=== PATIENT | male | born 1955 | race Caucasian/White ===

== ENCOUNTER 2023-10-18 08:44 | Inpatient (IN) ==
[2023-10-18 09:59] LABS: Appearance,Urine CLEAR (Clear); Bilirubin,Urine Negative (Negative); Color,Urine YELLOW; Culture Indicated,Urine No; Glucose,Urine (UA) Negative (Negative); Ketones,Urine 5 mg/dL (Negative); Leukocyte Esterase,Urine Negative /uL (Negative); Nitrate,Urine Negative (Negative); Protein,Urine Negative (Negative); Specific Gravity,Urine 1.009 (1.000-1.035); Urine Blood Negative (Negative); Urobilinogen,Urine Negative
[2023-10-18 09:59] LABS: Basophils # (Auto) 0.01 K/mcL (0.00-0.30); Basophils % (Auto) 0.1 % (0.0-2.0); Eosinophils # (Auto) 0.02 K/mcL (0.00-0.70); Eosinophils % (Auto) 0.3 % (0.0-7.0); Hematocrit 31.6 % (40.1-51.0); Hemoglobin 11.6 g/dL (13.7-17.5); Lymphocytes # (Auto) 0.98 K/mcL (1.50-4.80); Lymphocytes % (Auto) 14.5 % (15.5-49.0); Mean Cell Volume 95.2 fL (80.0-100.0); Mean Corpuscular HGB Conc 36.7 g/dL (31.0-36.0); Monocytes # (Auto) 0.55 K/mcL (0.10-0.90); Monocytes % (Auto) 8.1 % (1.0-12.0); Neutrophils % (Auto) 76.3 % (38.0-78.0); Platelet Count 201 K/mcL (140-440); RBC 3.32 M/mcL (4.63-6.08); Red Cell Distribution Width 11.1 % (11.5-14.5); WBC 6.8 K/mcL (4.5-11.0)
[2023-10-18 10:51] LABS: Blood Urea Nitrogen 8 mg/dL (8-23); Carbon Dioxide 17 mmol/L (22-30); Chloride 76 mmol/L (96-108); Glomerular Filtration Rate 87; Glucose 103 mg/dL (70-105)
[2023-10-18] MEDS ORDERED: 0.9 % SODIUM CHLORIDE 1,000 ML IV SCH ×2 (11:30→14:07)
[2023-10-18 11:48] LABS: POC Calcium, Ionized 1.11 (1.16-1.32); POC Creatinine 0.6 (0.6-1.2); POC Potassium 4.4 (3.3-5.1)
[2023-10-18 12:05] LABS: Alcohol, Blood < 10.0 mg/dL; Alcohol,Blood < 0.010 gm/dL (<0.010)
[2023-10-18 12:11] LABS: Osmolality,Urine 313 mOSM/kg (80-1000); Sodium, Urine Random 66 mmol/L
[2023-10-18] MEDS ORDERED: IPRATROPIUM/ALBUTEROL 3 ML AMPUL.NEB NEB PRN (14:07)
[2023-10-18] MEDS ORDERED: ACETAMINOPHEN 325 MG TABLET PO PRN (14:07)
[2023-10-18] MEDS ORDERED: SENNOSIDES 1 TABLET PO PRN (14:07)
[2023-10-18] MEDS ORDERED: ONDANSETRON 4 MG/2 ML VIAL IV PRN (14:07)
[2023-10-18] MEDS: 0.9 % SODIUM CHLORIDE 10 ML SYRINGE IV SCH ×2 (14:18→20:14)
[2023-10-18 18:46] LABS: Blood Urea Nitrogen 8 mg/dL (8-23); Calcium 8.8 mg/dL (8.6-10.4); Carbon Dioxide 18 mmol/L (22-30); Chloride 86 mmol/L (96-108); Glomerular Filtration Rate 97; Glucose 93 mg/dL (70-105)
[2023-10-18] MEDS ORDERED: DEXTROSE 5% IN WATER 1,000 ML IV SCH (19:30)
[2023-10-18] MEDS: DOCUSATE SODIUM 100 MG CAPSULE PO SCH (20:14)
[2023-10-18] MEDS: TRIAMCINOLONE CREAM 0.1% 15G 1 DOSE TUBE TOPICAL SCH (20:21)
[2023-10-18] MEDS: TAMSULOSIN 0.4 MG CAPSULE PO SCH (20:30)
[2023-10-18] MEDS ORDERED: POTASSIUM CHLORIDE 20 MEQ TABLET PO SCH (21:00)
[2023-10-19 00:53] LABS: Blood Urea Nitrogen 10 mg/dL (8-23); Calcium 8.8 mg/dL (8.6-10.4); Carbon Dioxide 21 mmol/L (22-30); Chloride 89 mmol/L (96-108); Glomerular Filtration Rate 87; Glucose 102 mg/dL (70-105)
[2023-10-19] MEDS: DEXTROSE 5% IN WATER 1,000 ML IV SCH ×2 (01:05→10:45)
[2023-10-19] MEDS: 0.9 % SODIUM CHLORIDE 10 ML SYRINGE IV SCH ×3 (05:40→23:36)
[2023-10-19 06:05] LABS: Basophils # (Auto) 0.01 K/mcL (0.00-0.30); Basophils % (Auto) 0.3 % (0.0-2.0); Eosinophils # (Auto) 0.03 K/mcL (0.00-0.70); Eosinophils % (Auto) 0.8 % (0.0-7.0); Hematocrit 29.1 % (40.1-51.0); Hemoglobin 10.6 g/dL (13.7-17.5); Lymphocytes # (Auto) 0.64 K/mcL (1.50-4.80); Lymphocytes % (Auto) 16.9 % (15.5-49.0); Mean Cell Volume 99.3 fL (80.0-100.0); Mean Corpuscular HGB Conc 36.4 g/dL (31.0-36.0); Mean Platelet Volume 8.8 fL (8.8-12.5); Monocytes # (Auto) 0.43 K/mcL (0.10-0.90); Monocytes % (Auto) 11.3 % (1.0-12.0); Neutrophils % (Auto) 70.2 % (38.0-78.0); Platelet Count 139 K/mcL (140-440); RBC 2.93 M/mcL (4.63-6.08); Red Cell Distribution Width 11.5 % (11.5-14.5); WBC 3.8 K/mcL (4.5-11.0)
[2023-10-19 06:19] LABS: Phosphorous 3.2 mg/dL (2.5-4.5)
[2023-10-19 06:22] LABS: Blood Urea Nitrogen 8 mg/dL (8-23); Calcium 8.8 mg/dL (8.6-10.4); Carbon Dioxide 20 mmol/L (22-30); Chloride 92 mmol/L (96-108); Glomerular Filtration Rate 97; Glucose 112 mg/dL (70-105)
[2023-10-19] MEDS: POTASSIUM CHLORIDE 20 MEQ TABLET PO SCH ×2 (07:38→17:56)
[2023-10-19] MEDS ORDERED: [UNRECOGNIZED DRUG - OTHER] PO SCH (09:00)
[2023-10-19] MEDS: ATORVASTATIN 10 MG TABLET PO SCH (09:03)
[2023-10-19] MEDS: ENOXAPARIN 40 MG/0.4 ML SYRINGE SQ SCH (09:03)
[2023-10-19] MEDS: TRIAMCINOLONE CREAM 0.1% 15G 1 DOSE TUBE TOPICAL SCH ×2 (09:07→20:01)
[2023-10-19] MEDS: DOCUSATE SODIUM 100 MG CAPSULE PO SCH ×2 (09:07→19:58)
[2023-10-19 12:15] LABS: Blood Urea Nitrogen 9 mg/dL (8-23); Calcium 8.9 mg/dL (8.6-10.4); Carbon Dioxide 22 mmol/L (22-30); Chloride 92 mmol/L (96-108); Glomerular Filtration Rate 92; Glucose 109 mg/dL (70-105)
[2023-10-19 18:28] LABS: Blood Urea Nitrogen 13 mg/dL (8-23); Calcium 8.8 mg/dL (8.6-10.4); Carbon Dioxide 21 mmol/L (22-30); Chloride 94 mmol/L (96-108); Glomerular Filtration Rate 92; Glucose 117 mg/dL (70-105)
[2023-10-19] MEDS: TAMSULOSIN 0.4 MG CAPSULE PO SCH (20:00)
[2023-10-20] MEDS: DEXTROSE 5% IN WATER 1,000 ML IV SCH ×2 (00:01→05:08)
[2023-10-20 00:57] LABS: Blood Urea Nitrogen 10 mg/dL (8-23); Carbon Dioxide 20 mmol/L (22-30); Chloride 95 mmol/L (96-108); Glomerular Filtration Rate 97; Glucose 120 mg/dL (70-105)
[2023-10-20 06:14] LABS: Basophils # (Auto) 0 K/mcL (0.00-0.30); Basophils % (Auto) 0 % (0.0-2.0); Eosinophils # (Auto) 0.03 K/mcL (0.00-0.70); Eosinophils % (Auto) 0.9 % (0.0-7.0); Hematocrit 32.2 % (40.1-51.0); Hemoglobin 11.1 g/dL (13.7-17.5); Lymphocytes # (Auto) 0.62 K/mcL (1.50-4.80); Mean Cell Volume 104.2 fL (80.0-100.0); Mean Corpuscular HGB Conc 34.5 g/dL (31.0-36.0); Mean Platelet Volume 9.1 fL (8.8-12.5); Monocytes # (Auto) 0.45 K/mcL (0.10-0.90); Monocytes % (Auto) 13.1 % (1.0-12.0); Neutrophils % (Auto) 67.7 % (38.0-78.0); Platelet Count 154 K/mcL (140-440); RBC 3.09 M/mcL (4.63-6.08); Red Cell Distribution Width 11.7 % (11.5-14.5); WBC 3.4 K/mcL (4.5-11.0)
[2023-10-20 06:30] LABS: Blood Urea Nitrogen 7 mg/dL (8-23); Calcium 8.9 mg/dL (8.6-10.4); Carbon Dioxide 19 mmol/L (22-30); Chloride 97 mmol/L (96-108); Glomerular Filtration Rate 103; Glucose 122 mg/dL (70-105); Phosphorous 2.6 mg/dL (2.5-4.5)
[2023-10-20] MEDS: 0.9 % SODIUM CHLORIDE 10 ML SYRINGE IV SCH ×3 (07:34→20:36)
[2023-10-20] MEDS: ATORVASTATIN 10 MG TABLET PO SCH (09:09)
[2023-10-20] MEDS: ENOXAPARIN 40 MG/0.4 ML SYRINGE SQ SCH (09:09)
[2023-10-20] MEDS: DOCUSATE SODIUM 100 MG CAPSULE PO SCH ×2 (09:12→19:57)
[2023-10-20] MEDS: POTASSIUM CHLORIDE 20 MEQ TABLET PO SCH ×2 (09:12→17:55)
[2023-10-20] MEDS: TRIAMCINOLONE CREAM 0.1% 15G 1 DOSE TUBE TOPICAL SCH ×2 (09:13→19:58)
[2023-10-20 13:41] LABS: Blood Urea Nitrogen 6 mg/dL (8-23); Carbon Dioxide 18 mmol/L (22-30); Chloride 97 mmol/L (96-108); Glomerular Filtration Rate 103; Glucose 112 mg/dL (70-105)
[2023-10-20] MEDS: SODIUM CHLORIDE 1 GM TABLET PO SCH (20:36)
[2023-10-20] MEDS: TAMSULOSIN 0.4 MG CAPSULE PO SCH (20:36)
[2023-10-21] MEDS: 0.9 % SODIUM CHLORIDE 10 ML SYRINGE IV SCH ×3 (05:33→20:36)
[2023-10-21 06:12] LABS: Basophils # (Auto) 0.03 K/mcL (0.00-0.30); Basophils % (Auto) 0.8 % (0.0-2.0); Eosinophils % (Auto) 2.7 % (0.0-7.0); Hematocrit 33.3 % (40.1-51.0); Hemoglobin 11.4 g/dL (13.7-17.5); Lymphocytes # (Auto) 0.84 K/mcL (1.50-4.80); Lymphocytes % (Auto) 22.8 % (15.5-49.0); Mean Cell Volume 104.4 fL (80.0-100.0); Mean Corpuscular HGB Conc 34.2 g/dL (31.0-36.0); Monocytes % (Auto) 13.6 % (1.0-12.0); Neutrophils % (Auto) 59.6 % (38.0-78.0); Platelet Count 174 K/mcL (140-440); RBC 3.19 M/mcL (4.63-6.08); Red Cell Distribution Width 11.7 % (11.5-14.5); WBC 3.7 K/mcL (4.5-11.0)
[2023-10-21 06:25] LABS: ALT/SGPT 61 U/L (<40); AST/SGOT 78 U/L (<40); Albumin 3.5 gm/dL (3.2-5.2); Albumin/Globulin Ratio 1.1 (1.0-2.3); Alkaline Phosphatase 94 U/L (39-117); Bilirubin,Direct 0.2 mg/dL (<0.3); Bilirubin,Total 0.5 mg/dL (0.1-1.0); Blood Urea Nitrogen 8 mg/dL (8-23); Carbon Dioxide 21 mmol/L (22-30); Chloride 98 mmol/L (96-108); Globulin 3.1 gm/dL (2.2-3.7); Glomerular Filtration Rate 103; Glucose 99 mg/dL (70-105); Lactate Dehydrogenase 135 U/L (135-225); Phosphorous 2.9 mg/dL (2.5-4.5); Triglycerides 54 mg/dL (<150)
[2023-10-21] MEDS: ATORVASTATIN 10 MG TABLET PO SCH (07:43)
[2023-10-21] MEDS: SODIUM CHLORIDE 1 GM TABLET PO SCH ×2 (07:43→20:35)
[2023-10-21] MEDS: POTASSIUM CHLORIDE 20 MEQ TABLET PO SCH ×2 (07:43→17:29)
[2023-10-21] MEDS: TRIAMCINOLONE CREAM 0.1% 15G 1 DOSE TUBE TOPICAL SCH ×2 (07:44→20:36)
[2023-10-21] MEDS: ENOXAPARIN 40 MG/0.4 ML SYRINGE SQ SCH (07:44)
[2023-10-21] MEDS: DOCUSATE SODIUM 100 MG CAPSULE PO SCH ×2 (07:44→20:36)
[2023-10-21] MEDS ORDERED: 0.9 % SODIUM CHLORIDE 1,000 ML IV ONE (08:49)
[2023-10-21] MEDS ORDERED: ADENOSINE 3 MG/ML VIAL IV ONE (08:50)
[2023-10-21] MEDS ORDERED: METOPROLOL TARTRATE 5 MG/5 ML VIAL IV ONE ×3 (08:56→09:01)
[2023-10-21] MEDS: METOPROLOL TARTRATE 5 MG/5 ML VIAL IV SCH ×2 (09:40→09:41)
[2023-10-21 11:42] LABS: POC Calcium, Ionized 1.16 (1.16-1.32); POC Creatinine 0.7 (0.6-1.2); POC Potassium 3.5 (3.3-5.1)
[2023-10-21] MEDS: TAMSULOSIN 0.4 MG CAPSULE PO SCH (20:35)
[2023-10-22] MEDS: 0.9 % SODIUM CHLORIDE 10 ML SYRINGE IV SCH ×3 (05:28→20:09)
[2023-10-22 06:19] LABS: ALT/SGPT 51 U/L (<40); AST/SGOT 60 U/L (<40); Albumin 3.5 gm/dL (3.2-5.2); Albumin/Globulin Ratio 1.2 (1.0-2.3); Alkaline Phosphatase 91 U/L (39-117); Bilirubin,Direct 0.2 mg/dL (<0.3); Bilirubin,Total 0.5 mg/dL (0.1-1.0); Blood Urea Nitrogen 9 mg/dL (8-23); Calcium 9.2 mg/dL (8.6-10.4); Carbon Dioxide 22 mmol/L (22-30); Chloride 99 mmol/L (96-108); Glomerular Filtration Rate 103; Glucose 101 mg/dL (70-105); Lactate Dehydrogenase 162 U/L (135-225); Phosphorous 3.3 mg/dL (2.5-4.5); Triglycerides 57 mg/dL (<150); Uric Acid 3.6 mg/dL (2.5-8.0)
[2023-10-22] MEDS: SODIUM CHLORIDE 1 GM TABLET PO SCH ×2 (08:06→20:08)
[2023-10-22] MEDS: ATORVASTATIN 10 MG TABLET PO SCH (08:06)
[2023-10-22] MEDS: METOPROLOL SUCCINATE 50 MG TAB.XL.24H PO SCH ×2 (08:07→20:08)
[2023-10-22] MEDS: ENOXAPARIN 40 MG/0.4 ML SYRINGE SQ SCH (08:07)
[2023-10-22] MEDS: POTASSIUM CHLORIDE 20 MEQ TABLET PO SCH ×2 (08:07→16:49)
[2023-10-22] MEDS: DOCUSATE SODIUM 100 MG CAPSULE PO SCH ×3 (08:08→20:09)
[2023-10-22] MEDS ORDERED: METOPROLOL TARTRATE 5 MG/5 ML VIAL IV ONE ×2 (08:58→09:00)
[2023-10-22] MEDS: TRIAMCINOLONE CREAM 0.1% 15G 1 DOSE TUBE TOPICAL SCH ×2 (09:27→20:09)
[2023-10-22] MEDS ORDERED: METOPROLOL TARTRATE 5 MG/5 ML VIAL IV PRN (09:55)
[2023-10-22] MEDS: TAMSULOSIN 0.4 MG CAPSULE PO SCH (20:08)
[2023-10-23] MEDS: 0.9 % SODIUM CHLORIDE 10 ML SYRINGE IV SCH (06:09)
[2023-10-23] MEDS: POTASSIUM CHLORIDE 20 MEQ TABLET PO SCH (08:35)
[2023-10-23] MEDS: DOCUSATE SODIUM 100 MG CAPSULE PO SCH (08:35)
[2023-10-23] MEDS: METOPROLOL SUCCINATE 50 MG TAB.XL.24H PO SCH (08:35)
[2023-10-23] MEDS: SODIUM CHLORIDE 1 GM TABLET PO SCH (08:35)
[2023-10-23] MEDS: ATORVASTATIN 10 MG TABLET PO SCH (08:36)
[2023-10-23] MEDS: ENOXAPARIN 40 MG/0.4 ML SYRINGE SQ SCH (08:36)
[2023-10-23] MEDS: TRIAMCINOLONE CREAM 0.1% 15G 1 DOSE TUBE TOPICAL SCH (08:37)
[2023-10-23 09:14] LABS: Blood Urea Nitrogen 14 mg/dL (8-23); Calcium 9.2 mg/dL (8.6-10.4); Carbon Dioxide 25 mmol/L (22-30); Chloride 99 mmol/L (96-108); Glomerular Filtration Rate 97; Glucose 108 mg/dL (70-105)
[2023-10-23 12:49] VITALS: TEMP 98.1
[2023-10-23 14:50] VITALS: O2SAT 96
== END 2023-10-23 14:15 | disposition home or self-care (01) | DRG 641 ==
LOC: ED 08:44 → ICU 14:02
PROVIDERS: ADMIT Internal Medicine; ATTEND Internal Medicine

== ENCOUNTER 2024-03-02 12:11 | Inpatient (IN) ==
[2024-03-02] MEDS: LACTATED RINGERS 1,000 ML IV ONE (12:30)
[2024-03-02 13:12] LABS: Alcohol, Blood < 10.1 mg/dL; Alcohol,Blood < 0.010 gm/dL (<0.010)
[2024-03-02 13:14] LABS: ALT/SGPT 48 U/L (<40); AST/SGOT 81 U/L (<40); Albumin 4.2 gm/dL (3.2-5.2); Albumin/Globulin Ratio 1.2 (1.0-2.3); Alkaline Phosphatase 127 U/L (39-117); Bilirubin,Total 1.7 mg/dL (0.1-1.0); Blood Urea Nitrogen 7 mg/dL (8-23); Calcium 9.4 mg/dL (8.6-10.4); Carbon Dioxide 19 mmol/L (22-30); Chloride 86 mmol/L (96-108); Creatine Kinase 517 U/L (24-195); Globulin 3.4 gm/dL (2.2-3.7); Glomerular Filtration Rate 92; Glucose 148 mg/dL (70-105)
[2024-03-02 13:20] LABS: Basophils # (Auto) 0.01 K/mcL (0.00-0.30); Basophils % (Auto) 0.2 % (0.0-2.0); Eosinophils # (Auto) 0 K/mcL (0.00-0.70); Eosinophils % (Auto) 0 % (0.0-7.0); Hemoglobin 12.8 g/dL (13.7-17.5); Lymphocytes # (Auto) 0.67 K/mcL (1.50-4.80); Lymphocytes % (Auto) 13.7 % (15.5-49.0); Mean Cell Volume 98.4 fL (80.0-100.0); Mean Corpuscular HGB Conc 35.6 g/dL (31.0-36.0); Mean Platelet Volume 9.4 fL (8.8-12.5); Monocytes # (Auto) 0.47 K/mcL (0.10-0.90); Monocytes % (Auto) 9.6 % (1.0-12.0); Neutrophils % (Auto) 76.1 % (38.0-78.0); Platelet Count 135 K/mcL (140-440); RBC 3.66 M/mcL (4.63-6.08); Red Cell Distribution Width 11.8 % (11.5-14.5); WBC 4.9 K/mcL (4.5-11.0)
[2024-03-02 13:37] LABS: INR 1.2 (0.9-1.1); Partial Thromboplastin Time 31.5 sec (20.0-37.0); Prothrombin Time 16.1 sec (11.9-14.5)
[2024-03-02 14:26] LABS: Appearance,Urine Cloudy (Clear); Bacteria,Urine Mod /hpf (0); Bilirubin,Urine Negative (Negative); Color,Urine Yellow; Culture Indicated,Urine Yes; Glucose,Urine (UA) Negative (Negative); Ketones,Urine 40 mg/dL (Negative); Leukocyte Esterase,Urine Large /uL (Negative); Nitrate,Urine Positive (Negative); Protein,Urine 100 mg/dL (Negative); Urine Blood Large ery/mcL (Negative); Urine RBC > 182 /hpf (0-1); Urine Squamous Epithelial Cell 1 /hpf (0-4); Urine WBC > 182 /hpf (0-4); Urobilinogen,Urine Normal
[2024-03-02] MEDS: LORazepam 2 MG/ML VIAL IV ONE ×2 (14:31→16:08)
[2024-03-02] MEDS ORDERED: LORazepam 2 MG/ML VIAL IM PRN (16:01)
[2024-03-02] MEDS: CEFEPIME 1 GM VIAL IV ONE (16:02)
[2024-03-02] MEDS ORDERED: LORazepam 2 MG/ML VIAL IV PRN (16:10)
[2024-03-02] MEDS: 0.9 % SODIUM CHLORIDE 1,000 ML IV SCH (16:15)
[2024-03-02 16:37] LABS: Anion Gap 13.6 (8.0-16.0); Blood Urea Nitrogen 7 mg/dL (8-23); Calcium 8.9 mg/dL (8.6-10.4); Carbon Dioxide 22 mmol/L (22-30); Chloride 90 mmol/L (96-108); Glomerular Filtration Rate 99; Glucose 117 mg/dL (70-105)
[2024-03-02] MEDS ORDERED: SENNOSIDES 1 TABLET PO PRN (16:53)
[2024-03-02] MEDS: GABAPENTIN 100 MG CAPSULE PO SCH (17:14)
[2024-03-02] MEDS: METOPROLOL SUCCINATE 50 MG TAB.XL.24H PO ONE (17:14)
[2024-03-02] MEDS: THIAMINE 100 MG/ML VIAL IM ONE (19:31)
[2024-03-02] MEDS: DOCUSATE SODIUM 100 MG CAPSULE PO SCH (20:06)
[2024-03-02] MEDS: APIXABAN 5 MG TABLET PO SCH (20:07)
[2024-03-02] MEDS: 0.9 % SODIUM CHLORIDE 10 ML SYRINGE IV SCH (22:03)
[2024-03-02] MEDS: CEFEPIME 2 GM VIAL IV SCH (22:03)
[2024-03-02] MEDS: SODIUM CHLORIDE 1 GM TABLET PO ONE (22:44)
[2024-03-03 06:28] LABS: Basophils # (Auto) 0.01 K/mcL (0.00-0.30); Basophils % (Auto) 0.2 % (0.0-2.0); Eosinophils # (Auto) 0.03 K/mcL (0.00-0.70); Eosinophils % (Auto) 0.6 % (0.0-7.0); Hematocrit 35.2 % (40.1-51.0); Hemoglobin 12.1 g/dL (13.7-17.5); Lymphocytes # (Auto) 1.05 K/mcL (1.50-4.80); Lymphocytes % (Auto) 20.9 % (15.5-49.0); Mean Cell Volume 102.6 fL (80.0-100.0); Mean Corpuscular HGB Conc 34.4 g/dL (31.0-36.0); Mean Platelet Volume 9.9 fL (8.8-12.5); Monocytes # (Auto) 0.56 K/mcL (0.10-0.90); Monocytes % (Auto) 11.1 % (1.0-12.0); Neutrophils % (Auto) 66.8 % (38.0-78.0); Platelet Count 117 K/mcL (140-440); RBC 3.43 M/mcL (4.63-6.08); Red Cell Distribution Width 12.1 % (11.5-14.5)
[2024-03-03 06:57] LABS: Creatine Kinase 254 U/L (24-195)
[2024-03-03 07:01] LABS: ALT/SGPT 31 U/L (<40); AST/SGOT 59 U/L (<40); Albumin 3.7 gm/dL (3.2-5.2); Albumin/Globulin Ratio 1.2 (1.0-2.3); Alkaline Phosphatase 108 U/L (39-117); Bilirubin,Total 1.4 mg/dL (0.1-1.0); Blood Urea Nitrogen 12 mg/dL (8-23); Carbon Dioxide 21 mmol/L (22-30); Chloride 96 mmol/L (96-108); Globulin 3.1 gm/dL (2.2-3.7); Glomerular Filtration Rate 92; Glucose 99 mg/dL (70-105)
[2024-03-03] MEDS ORDERED: LORazepam 2 MG/ML VIAL IV PRN (07:30)
[2024-03-03] MEDS: ATORVASTATIN 10 MG TABLET PO SCH (09:12)
[2024-03-03] MEDS: METOPROLOL SUCCINATE 50 MG TAB.XL.24H PO SCH (09:12)
[2024-03-03] MEDS: SODIUM CHLORIDE 1 GM TABLET PO SCH (09:13)
[2024-03-03] MEDS: THIAMINE 100 MG TABLET PO SCH (09:13)
[2024-03-03] MEDS: 0.9 % SODIUM CHLORIDE 1,000 ML IV SCH (09:19)
[2024-03-03] MEDS: DILTIAZEM 120 MG CAP.XL.24H PO SCH (16:13)
[2024-03-03] MEDS: MAGNESIUM HYDROXIDE 30 ML ORAL.SUSP PO PRN (16:13)
[2024-03-03] MEDS: LORazepam 2 MG/ML VIAL IV PRN (20:03)
[2024-03-03] MEDS: chlordiazePOXIDE 25 MG CAPSULE PO PRN (20:04)
[2024-03-03] MEDS: TAMSULOSIN 0.4 MG CAPSULE PO SCH (20:04)
[2024-03-04] MEDS: chlordiazePOXIDE 25 MG CAPSULE PO ONE (01:30)
[2024-03-04 08:13] LABS: ALT/SGPT 24 U/L (<40); AST/SGOT 43 U/L (<40); Albumin 3.6 gm/dL (3.2-5.2); Albumin/Globulin Ratio 1.2 (1.0-2.3); Alkaline Phosphatase 109 U/L (39-117); Bilirubin,Direct 0.4 mg/dL (<0.3); Bilirubin,Total 1.1 mg/dL (0.1-1.0); Blood Urea Nitrogen 16 mg/dL (8-23); Carbon Dioxide 23 mmol/L (22-30); Chloride 97 mmol/L (96-108); Glomerular Filtration Rate 92; Glucose 105 mg/dL (70-105); Lactate Dehydrogenase 229 U/L (135-225); Phosphorous 2.9 mg/dL (2.5-4.5); Triglycerides 57 mg/dL (<150); Uric Acid 4.3 mg/dL (2.5-8.0)
[2024-03-04 08:16] LABS: Basophils # (Auto) 0.03 K/mcL (0.00-0.30); Basophils % (Auto) 0.5 % (0.0-2.0); Eosinophils # (Auto) 0.09 K/mcL (0.00-0.70); Eosinophils % (Auto) 1.6 % (0.0-7.0); Hemoglobin 11.7 g/dL (13.7-17.5); Lymphocytes # (Auto) 1.15 K/mcL (1.50-4.80); Lymphocytes % (Auto) 20.8 % (15.5-49.0); Mean Cell Volume 103.7 fL (80.0-100.0); Mean Corpuscular HGB Conc 34.4 g/dL (31.0-36.0); Mean Platelet Volume 10.1 fL (8.8-12.5); Monocytes # (Auto) 0.59 K/mcL (0.10-0.90); Monocytes % (Auto) 10.7 % (1.0-12.0); Neutrophils % (Auto) 65.3 % (38.0-78.0); Platelet Count 119 K/mcL (140-440); RBC 3.28 M/mcL (4.63-6.08); Red Cell Distribution Width 12.1 % (11.5-14.5); WBC 5.5 K/mcL (4.5-11.0)
[2024-03-04] MEDS: FOLIC ACID 1 MG TABLET PO SCH (10:58)
[2024-03-04] MEDS: chlordiazePOXIDE 25 MG CAPSULE PO PRN (11:51)
[2024-03-05 05:50] LABS: Hematocrit 33.5 % (40.1-51.0); Hemoglobin 11.1 g/dL (13.7-17.5)
[2024-03-05 06:41] LABS: ALT/SGPT 21 U/L (<40); AST/SGOT 39 U/L (<40); Albumin 3.4 gm/dL (3.2-5.2); Albumin/Globulin Ratio 1.2 (1.0-2.3); Alkaline Phosphatase 111 U/L (39-117); Bilirubin,Direct 0.4 mg/dL (<0.3); Bilirubin,Total 0.9 mg/dL (0.1-1.0); Blood Urea Nitrogen 14 mg/dL (8-23); Carbon Dioxide 20 mmol/L (22-30); Chloride 99 mmol/L (96-108); Globulin 2.9 gm/dL (2.2-3.7); Glomerular Filtration Rate 97; Glucose 98 mg/dL (70-105); Lactate Dehydrogenase 183 U/L (135-225); Phosphorous 3.5 mg/dL (2.5-4.5); Triglycerides 54 mg/dL (<150); Uric Acid 4.3 mg/dL (2.5-8.0)
[2024-03-05] MEDS: POTASSIUM CHLORIDE 20 MEQ TABLET PO SCH (10:03)
[2024-03-05] MEDS: FUROSEMIDE 40 MG/4 ML VIAL IV SCH (10:04)
[2024-03-05] MEDS: ALBUMIN HUMAN 12.5 GM/50 ML VIAL IV SCH (11:53)
[2024-03-05] MEDS: ONDANSETRON 4 MG/2 ML VIAL IV PRN (20:52)
[2024-03-06 07:26] LABS: Blood Urea Nitrogen 15 mg/dL (8-23); Calcium 9.1 mg/dL (8.6-10.4); Carbon Dioxide 21 mmol/L (22-30); Chloride 103 mmol/L (96-108); Glomerular Filtration Rate 87; Glucose 100 mg/dL (70-105)
[2024-03-06] MEDS: METOPROLOL TARTRATE 5 MG/5 ML VIAL IV PRN (23:23)
[2024-03-07] MEDS: METOPROLOL SUCCINATE 50 MG TAB.XL.24H PO SCH (08:16)
[2024-03-07] MEDS: APIXABAN 5 MG TABLET PO SCH (08:16)
[2024-03-07] MEDS: LEVOFLOXACIN 750 MG TABLET PO ONE (10:11)
[2024-03-07 11:37] VITALS: TEMP 97.4; O2SAT 93
== END 2024-03-07 11:36 | DRG 641 ==
LOC: ED 12:11 → ICU 16:45
PROVIDERS: ADMIT Student in an Organized Health Care Education/Training Program; ATTEND Internal Medicine